=== PATIENT | female | born 2000 | race Caucasian/White ===

== ENCOUNTER 2018-09-04 17:43 | Emergency (ER) | payer OTHER ==
[~2018-09-04] VITALS: Wt 77.0 kg
[2018-09-04] MEDS ORDERED: FLUORESCEIN STRIP BOTH EYES ONE (21:30)
[2018-09-04] MEDS ORDERED: TETRACAINE 0.5% 4 ML OPH BOTH EYES ONE (21:30)
--- NOTE | 2018-09-04 21:37 | ERD ---
ER Documentation Chief Complaint Chief Complaint R eye red/ itchy/ blurry/ increased tearing+ discharge x1wk. no meds taken. HPI 17-year-old female with no past medical surgical history who presents with one- week complaint of right eye itchiness, erythema, teary discharge, as well as blurred vision. First noticed symptoms after waking up with prominent erythema to the right eye. Describes feeling of object floating in her right eye. Teary clear discharge from primarily the right eye. Some reported blurry vision or MRI to right eye. She is a contact lens user. She otherwise is without symptoms or further complaints. ROS All systems reviewed and are negative except as per history of present illness. Medications Home Meds Active Scripts Ciprofloxacin Opht* (Ciloxan*) 0.3%-3.5 Opht Oint, 1 APPLIC BOTH EYES QID for 7 Days, EA Prov:JEUDINE,LUCAHO PA-C 09/04/18 Prednisolone Acetate* (Pred Forte*) 5 Ml Susp, 1 DROP BOTH EYES QID for 4 Days, #1 EA Prov:LUCA PERKINSHO PA-C 09/04/18 Allergies Allergies: Coded Allergies: No Known Allergy (Unverified , 09/04/18) PMhx/Soc Medical and Surgical Hx: pt denies Medical Hx, pt denies Surgical Hx Hx Alcohol Use: No Hx Substance Use: No Hx Tobacco Use: No Smoking Status: Never smoker FmHx Family History: No diabetes, No coronary disease, No other Physical Exam Vitals Vital Signs Date Temp Pulse Resp B/P (MAP) Pulse Ox O2 O2 Flow FiO2 Time Delivery Rate 09/04/18 98.9 79 18 117/75 97 Room Air 22:36 (89) 09/04/18 99.0 84 16 141/82 95 17:51 (101) Physical Exam I have reviewed the triage vital signs. Const: Well nourished, well developed, appears stated age Eyes: prominent erythema to b/l eye, R>L, clear discharge, pupils reactive to light, able to tract without issue, no gross deformities noted HENT: NCAT, Neck supple without meningismus CV: RRR, Warm, well-perfused extremities RESP: CTAB, Unlabored respiratory effort GI: soft, non-tender, non-distended, no masses MSK: No gross deformities appreciated Skin: Warm, dry. No rashes Neuro: Alert, java designer II-XII grossly intact. Sensation and motor function of extremities grossly intact. Psych: Appropriate mood and affect. Wood lamp exam: R eye Results 24 hrs Current Medications Medications Dose Sig/Tim Start Time Status Last (Trade) Ordered Route PRN Stop Time Admin Dose Reason Admin Tetracaine 1 drop ONCE ONCE 09/04/18 DC HCl BOTH EYES 21:30 (Tetracaine 09/04/18 21:31 0.5% Steri-Unit Yari) Fluorescein 1 strip ONCE ONCE 09/04/18 DC Sodium BOTH EYES 21:30 ([id number] 09/04/18 21:31 p) Procedures/MDM 17-year-old presents with right eye pain. Exam findings consistent with corneal abrasions and bacterial conjunctivitis given contact lenses use history and exam findings on reed lamp with positive Fluorescein uptake. Hill negative. Plan: Contact Lens Wearer: ciprofloxacin ophthalmic Artificial tears 4-6x per day (advised if buying preservative free may increase this amount) Disposition: Discharge home with primary care and ophthalmology follow up (Clinic information given) We discussed follow up with the patient's primary care doctor within 24 to 48 hours. Patient counseled regarding my diagnostic impression and care plan. Prior to discharge all questions answered. Pt agrees with treatment plan and understands strict return precautions. Precautionary instructions provided including instructions to return to the ER if not improving or for any worsening or changing symptoms or concerns. Departure Condition: Stable Patient Instructions: Corneal Abrasion TANI PERKINS PA-C Sep 04, 2018 21:36
[2018-09-04] MEDS ORDERED: PRED5DRO20 BOTH EYES (22:20)
[2018-09-04] MEDS ORDERED: CPR3OO3.5 BOTH EYES (22:20)
[2018-09-04 22:36] VITALS: BP 117/75; PULSE 79; RESP 18
== END 2018-09-04 22:36 | disposition home or self-care (01) ==
LOC: FTE 17:43
DX: H57.11 Ocular pain, right eye (principal)
CPT/HCPCS: Z7502; Z7610; 99283